=== PATIENT | female | born 1960 | race Caucasian/White ===

== ENCOUNTER → 2016-12-18 | Outpatient (CLI) | payer BC ==
[~2016-12-18] MED LIST: ALDACTONE; MOBIC; VICODIN; ZOCOR
--- NOTE | ~2016-12-18 | EKG ---
PATIENT: DEIDRE DUNN UNIT #: [id number] Ventricular Rate: 61 BPM Atrial Rate: 61 BPM P-R Interval: 186 ms QRS Duration: 100 ms Q-T Interval: 406 ms QTC Calculation(Bezet): 408 ms P [place]: 8 degrees Calculated R [place]: 3 degrees Calculated T [place]: 21 degrees Diagnosis Line: Normal sinus rhythm Diagnosis Line: Normal ECG Diagnosis Line: No previous ECGs available Diagnosis Line: Confirmed by JOVANI WARD MD ([id number]) on 12/19/2016 Diagnosis Line: 10:22:47 AM INTERPRETING MD: SYLVIA MANNING
[2016-12-18 11:59] LABS: HEMATOCRIT 37.8 % (35.0-45.0); HEMOGLOBIN 13.2 gm/dL (12.0-16.0); MEAN CELL VOLUME 91.8 FL (83-96); MEAN CORPUSCULAR HEMOGLOBIN 31.9 PG (28-34); MEAN CORPUSCULAR HGB CONC 34.8 g/dL (30-36); MEAN PLATELET VOLUME 6.8 FL (6.5-11.5); RED BLOOD COUNT 4.12 X10e (3.90-5.30); WHITE BLOOD COUNT 4.9 X10e3 (4.0-10.5)
[2016-12-18 12:21] LABS: CALCIUM SERUM 8.6 mg/dL (8.4-10.2); GLOM FILT RATE Estimated 63.4 mL/min (>60); POTASSIUM 3.3 mmol/L (3.5-5.1)
== END | disposition home or self-care (01) ==
LOC: SEKG 11:46
PROVIDERS: Orthopaedic Surgery
DX: Z01.818 Encounter for other preprocedural examination (principal); M75.101 Unspecified rotator cuff tear or rupture of right shoulder, not specified as traumatic
CPT/HCPCS: 36415; 80048; 85027; 93005

== ENCOUNTER 2017-04-01 17:21 | Emergency (ER) | payer SELFPAY ==
[2017-04-01] MEDS ORDERED: ZOCOR (17:23)
[2017-04-01] MEDS ORDERED: MOBIC (17:23)
[2017-04-01] MEDS ORDERED: VICODIN (17:23)
[2017-04-01] MEDS ORDERED: ALDACTONE (17:23)
== END 2017-04-01 18:46 | disposition home or self-care (01) ==
LOC: SED 17:21
DX: S29.012A Strain of muscle and tendon of back wall of thorax, initial encounter (principal); I10 Essential (primary) hypertension; V43.52XA Car driver injured in collision with other type car in traffic accident, initial encounter
CPT/HCPCS: 99283